=== PATIENT | male | born 1995 | race Asian ===

== ENCOUNTER 2017-09-21 16:22 | Emergency (ER) | payer OTHER ==
[~2017-09-21] VITALS: Ht 162.6 cm; Wt 53.2 kg
[2017-09-21 16:26] VITALS: BP 123/58; PULSE 83; TEMP 99.4
[2017-09-21 17:21] LABS: INFLUENZA A NEGATIVE; INFLUENZA B NEGATIVE
[2017-09-21] MEDS ORDERED: TAMIFLU 75MG75 MG PO (17:29)
== END 2017-09-21 17:42 | disposition home or self-care (01) ==
LOC: COL.ER 16:22
PROVIDERS: Physician Assistant
DX: J11.1 Influenza due to unidentified influenza virus with other respiratory manifestations (principal); F17.210 Nicotine dependence, cigarettes, uncomplicated

== ENCOUNTER 2018-05-21 18:48 | Emergency (ER) | payer OTHER ==
[~2018-05-21] VITALS: Ht 162.6 cm; Wt 53.6 kg
[~2018-05-21 18:48] MED LIST: TAMIFLU 75MG75 MG PO
[2018-05-21 18:54] VITALS: BP 127/61; TEMP 98.3
[2018-05-21] MEDS ORDERED: ZITHROMAX Z PA250 MG PO (19:41)
[2018-05-21 20:43] VITALS: PULSE 96
== END 2018-05-21 20:10 | disposition home or self-care (01) ==
LOC: COL.ER 18:48
DX: J06.9 Acute upper respiratory infection, unspecified (principal); J45.909 Unspecified asthma, uncomplicated

== ENCOUNTER 2019-05-12 21:36 | Emergency (ER) | payer OTHER ==
[~2019-05-12] VITALS: Ht 162.6 cm; Wt 59.1 kg
[~2019-05-12 21:36] MED LIST changes: +ZITHROMAX Z PA250 MG PO
[2019-05-12 21:43] VITALS: TEMP 99
[2019-05-12 23:51] VITALS: BP 120/80; PULSE 75
== END 2019-05-12 23:51 | disposition home or self-care (01) ==
LOC: COL.ER 21:36
DX: K08.119 Complete loss of teeth due to trauma, unspecified class (principal); Y04.0XXA Assault by unarmed brawl or fight, initial encounter